=== PATIENT | male | born 1955 | race Caucasian/White ===

== ENCOUNTER 2022-09-26 11:57 | Emergency (ER) | payer MEDICARE, OTHER ==
[~2022-09-26] VITALS: Ht 172.7 cm; Wt 68.9 kg
--- NOTE | 2022-09-26 13:02 | NUR ---
DREA [phone] DAUGHTER.
--- NOTE | 2022-09-26 14:24 | NUR ---
Spoke with Daughter/Magy [phone], pt provided consent. She will be picking up patient in the next 20-25 minutes.
--- NOTE | 2022-09-26 14:51 | NUR ---
SON AT BEDSIDE TO PROGRAM COORDINATOR EXECUTIVE EDUCATION THE PATIENT.
--- NOTE | 2022-09-26 14:51 | NUR ---
Patient discharged to home with son in stable condition. Written and verbal after care instructions given. Patient and son verbalize understanding of instruction.
[2022-09-26 14:53] VITALS: BP 128/77
== END 2022-09-26 14:54 | disposition home or self-care (01) ==
LOC: ER 12:00
DX: F10.129 Alcohol abuse with intoxication, unspecified (principal); Y90.9 Presence of alcohol in blood, level not specified